=== PATIENT | male | born 1990 | race Caucasian/White ===

== ENCOUNTER 2020-04-09 17:12 | Emergency (ER) | payer OTHER ==
[~2020-04-09] VITALS: Ht 172.7 cm; Wt 68.0 kg
[~2020-04-09 17:12] MED LIST: SUPPORT-5001 EACH
[2020-04-09] MEDS ORDERED: NAPROXEN375 MG PO (20:49)
== END 2020-04-09 21:30 | disposition home or self-care (01) ==
LOC: ER 17:12
DX: S00.83XA Contusion of other part of head, initial encounter (principal); V00.141A Fall from scooter (nonmotorized), initial encounter; Y93.89 Activity, other specified; Y92.488 Other paved roadways as the place of occurrence of the external cause; Y99.8 Other external cause status

== ENCOUNTER 2020-05-17 20:37 | Emergency (ER) | payer OTHER ==
[~2020-05-17] VITALS: Ht 172.7 cm; Wt 68.0 kg
[~2020-05-17 20:37] MED LIST changes: +NAPROXEN375 MG PO
== END 2020-05-17 22:55 | disposition home or self-care (01) ==
LOC: ER 20:37
DX: B86 Scabies (principal)

== ENCOUNTER 2021-02-17 18:26 | Emergency (ER) | payer OTHER ==
[~2021-02-17] VITALS: Ht 172.7 cm; Wt 62.6 kg
== END 2021-02-17 21:23 | disposition home or self-care (01) ==
LOC: ER 18:26
DX: J06.9 Acute upper respiratory infection, unspecified (principal); U07.1 COVID-19

== ENCOUNTER 2021-05-10 12:36 | Emergency (ER) | payer OTHER ==
[~2021-05-10] VITALS: Ht 172.7 cm; Wt 60.3 kg
== END 2021-05-10 16:05 | disposition home or self-care (01) ==
LOC: ER 12:36
DX: B34.9 Viral infection, unspecified (principal); Z20.822 Contact with and (suspected) exposure to COVID-19

== ENCOUNTER 2021-08-25 12:01 | Outpatient (CLI) | payer OTHER | END 2021-08-25 12:10 | disposition home or self-care (01) | LOC: RAD 12:01 | PROVIDERS: ATTEND Family Medicine Adult Medicine | DX: R05.9 Cough, unspecified (principal) ==

== ENCOUNTER → 2022-11-12 | Emergency (ER) | payer OTHER ==
[~2022-11-12] VITALS: Ht 172.7 cm; Wt 60.3 kg
== END | disposition left against medical advice (07) ==
LOC: ER 01:25
DX: Z53.21 Procedure and treatment not carried out due to patient leaving prior to being seen by health care provider (principal)

== ENCOUNTER 2024-04-30 11:00 | Outpatient (CLI) | payer OTHER | END 2024-04-30 11:10 | disposition home or self-care (01) | LOC: RAD 11:00 | PROVIDERS: ATTEND General Practice | DX: R06.02 Shortness of breath (principal); Z13.88 Encounter for screening for disorder due to exposure to contaminants ==

== ENCOUNTER 2024-09-19 15:39 | Outpatient (CLI) | payer OTHER | END 2024-09-19 15:51 | disposition home or self-care (01) | LOC: RAD 15:39 | DX: M99.01 Segmental and somatic dysfunction of cervical region (principal); M99.02 Segmental and somatic dysfunction of thoracic region; M99.03 Segmental and somatic dysfunction of lumbar region; M99.04 Segmental and somatic dysfunction of sacral region; M99.05 Segmental and somatic dysfunction of pelvic region ==